=== PATIENT | female | born 1990 | race Caucasian/White ===

== ENCOUNTER 2016-08-16 20:26 | Emergency (ER) | payer OTHER ==
[~2016-08-16] VITALS: Ht 157.5 cm; Wt 132.9 kg
[~2016-08-16 20:26] MED LIST: DOCU100C PO; ESCI1TAB10 PO; LEVO25TA5 PO; OXYC1CAP5 PO; PANT40TA PO
[2016-08-16 20:28] VITALS: TEMP 36.7; Ht 157.5 cm; Wt 132.9 kg
--- NOTE | 2016-08-16 21:41 | DIAGNOSTIC IMAGING REPORT ---
LEFT ELBOW MIN 3 VIEWS ROUTINE CLINICAL HISTORY: Left elbow pain, no trauma COMPARISON: None. DISCUSSION: The bones and joint spaces appear intact. There is no evidence of fracture, dislocation or bony disease. There is no evidence for soft tissue swelling. IMPRESSION: Negative study. Electronically signed by: Xiang Yang M.D. 08/16/2016 9:39 PM Dictated Date/Time: 08/16/2016 9:39 PM
--- NOTE | 2016-08-16 22:14 | DIAGNOSTIC IMAGING REPORT ---
VENOUS DOPPLER LEFT ARM UPPER EXTREMITY VENOUS DOPPLER HISTORY: Pain Left elbow region edema, tenderness. No trauma COMPARISON STUDY: None. FINDINGS: The internal jugular vein is patent. There is normal flow within the subclavian vein. There is normal flow and compressibility within the left axillary, basilic, brachial, radial, ulnar, and visualized cephalic veins. IMPRESSION: No DVT within the upper extremity. Electronically signed by: Xiang Yang M.D. 08/16/2016 10:12 PM Dictated Date/Time: 08/16/2016 10:12 PM
[2016-08-16] MEDS ORDERED: LXP/20 PO (22:22)
[2016-08-16] MEDS ORDERED: BCPILLS PO (22:22)
[2016-08-16] MEDS ORDERED: PANT40TA2 PO (22:22)
--- NOTE | 2016-08-16 22:30 | EMERGENCY ROOM VISIT NOTE ---
History First contact with patient: 20:49 Chief Complaint: ELBOW PAIN/INJURY Stated Complaint: LT ELBOW/ARM SWOLLEN- CAN BARLEY MOVE IT History of Present Illness The patient is a 25 year old female who presents to the Emergency Room via private vehicle with complaints of "left elbow/arm swollen can barely move in". The patient states that approximately one week ago her left elbow began to develop pain. She denies or is unable to identify any injury to the area. She states that the elbow pain is worse with movement. She notes particularly worse with complete flexion of the left elbow. She points to the musculature just inferior to the left elbow joint on the ventral aspect of the proximal forearm as a location of pain. She also felt that the skin overlying the olecranon process was slightly red yesterday. She denies any history of blood clots. She denies any fevers or chills. She notes that the joint has not been warm to the touch, or diffusely red. Review of Systems A complete 6-point Review of Systems was discussed with the patient, with pertinent positives and negatives listed in the History of Present Illness. All remaining Review of Systems questions can be considered negative unless otherwise specified. Past Medical/Surgical History Medical Problems: (1) GERD (gastroesophageal reflux disease) (2) Ovarian cyst Family History Diabetes mellitus Heart disease Social History Smoking Status: Never Smoker Alcohol Use: none Marital Status: in relationship Housing Status: lives with significant other Occupation Status: employed Current/Historical Medications Scheduled Control Pills ( Control Pills), 1 TAB PO DAILY Escitalopram Oxalate (Escitalopram Oxalate), 20 MG PO DAILY Pantoprazole (Pantoprazole Sodium), 40 MG PO DAILY Allergies Coded Allergies: No Known Allergies (Unverified , 03/11/15) Physical Exam Vital Signs Date Time Temp Pulse Resp B/P (MAP) Pulse Ox O2 Delivery O2 Flow Rate FiO2 08/16/16 22:40 73 20 149/90 97 08/16/16 20:28 36.7 88 18 98 Room Air Physical Exam VITAL SIGNS - Vital signs and nursing notes were reviewed. Patient is afebrile , hypertensive, non-tachycardic and is saturating well on room air. GENERAL -25-year-old female appearing her stated age who is in no acute distress. Communicates well with provider and answers questions appropriately. SKIN - Without rashes. Skin overlying the left elbow is unremarkable. There is specifically no erythema, edema or rash. EXTREMITIES - No clubbing or peripheral cyanosis. No pretibial edema present. No tenderness to palpation overlying the left shoulder and left humerus. There is no tenderness to palpation overlying the left elbow joint. With passive range of motion there is reproducible tenderness with complete flexion. No palpable bursitis or inflammation overlying the olecranon process. She is neurovascularly intact in this region. +5/5 strength noted in UE/LE bilaterally. Medical Decision & Procedures ER Provider Diagnostic Interpretation: LEFT ELBOW MIN 3 VIEWS ROUTINE CLINICAL HISTORY: Left elbow pain, no trauma COMPARISON: None. DISCUSSION: The bones and joint spaces appear intact. There is no evidence of fracture, dislocation or bony disease. There is no evidence for soft tissue swelling. IMPRESSION: Negative study. Electronically signed by: Xiang Yang M.D. 08/16/2016 9:39 PM Dictated Date/Time: 08/16/2016 9:39 PM VENOUS DOPPLER LEFT ARM UPPER EXTREMITY VENOUS DOPPLER HISTORY: Pain Left elbow region edema, tenderness. No trauma COMPARISON STUDY: None. FINDINGS: The internal jugular vein is patent. There is normal flow within the subclavian vein. There is normal flow and compressibility within the left axillary, basilic, brachial, radial, ulnar, and visualized cephalic veins. IMPRESSION: No DVT within the upper extremity. Electronically signed by: Xiang Yang M.D. 08/16/2016 10:12 PM Dictated Date/Time: 08/16/2016 10:12 PM Medical Decision Patient was seen and evaluated as above. After obtaining a thorough history and physical examination, radiograph and x-ray were obtained of the affected regions. The patient presents with an atraumatic left elbow pain. I would like to state the elbow pain is rather in the musculature just inferior to left elbow joint. There is no evidence of septic joint on examination. The joint is not red, hot, swollen or tender to palpation. Her vital signs are stable. She subjectively reports no fever. Objectively no fever. Radiograph is negative. Ultrasound is negative. I suspect the patient may be expressing either pain secondary to overuse as she does a lot of typing, or she may strain this region. She also may have a slight tendinitis. Regardless, I'll treat her conservatively with an arm sling, [id number] medication as well as follow-up with the on-call orthopedic doctor regarding today's visit by calling him tomorrow for which she was instructed to do. She does seem happy with this plan of care. She was educated upon worrisome symptoms which to return, as well as symptoms to watch out for in case she would develop a septic joint. She verbalized understanding. She had questions regarding discharge, and was discharged home in good condition. Evaluation treatment this patient the following differential diagnoses entertained: Fracture, Lyme disease, septic joint, bursitis, epicondylitis, tendonitis, muscle strain, among others. Impression Primary Impression: Elbow pain, left Departure Information Dispostion Home / Self-Care Condition GOOD Referrals No Doctor, Assigned (PCP) Patient Instructions My [facility] Additional Instructions You have been treated in the Emergency Department for Elbow Pain. You have received pain medicine in the emergency department which impairs your ability to operate a vehicle. It is illegal for you to drive after receiving these medicines. For pain control, you can use the following [id number] medicines : - Regular strength (325mg/tab) Tylenol (acetaminophen) 2 tabs every 4-6 hours as needed. Do not exceed 12 tablets in a 24 hour period. Avoid taking more than 3 grams (3000 mg) of Tylenol per day. This includes any other sources of acetaminophen you may take on a regular basis. - Regular strength (200 mg/tab) Advil (ibuprofen) 1-2 tabs every 4-6 hours as needed. Do not exceed a dose of 3200 mg per day. If this is a recent injury (<24 hrs), ice can be applied to the area of pain for the first 3 days to help decrease pain and inflammation. You have been provided the number for an Orthopaedic Surgeon. You should call this number as soon as possible to establish a follow-up visit from today's Emergency Department visit. Keep the sling/splint in place until evaluated by Orthopedics. Return to the Emergency Department if your current symptoms worsen despite treatment course outlined above, or if you develop any of the following symptoms : intractable pain despite aforementioned treatment course or new onset of numbness or tingling of the arm. As we discussed if you develop a fever, red, hot, swollen elbow please return immediately. Please return to the emergency department with any new/concerning symptoms.
[2016-08-16 22:40] VITALS: BP 149/90; PULSE 73; O2SAT 97
== END 2016-08-16 22:41 | disposition home or self-care (01) ==
LOC: C.EDB 20:27 → C.EDD 22:41
DX: M25.522 Pain in left elbow (principal); K21.9 Gastro-esophageal reflux disease without esophagitis; N83.209 Unspecified ovarian cyst, unspecified side; Z79.899 Other long term (current) drug therapy; Z83.3 Family history of diabetes mellitus; Z82.49 Family history of ischemic heart disease and other diseases of the circulatory system

== ENCOUNTER 2017-01-24 22:16 | Emergency (ER) | payer OTHER ==
[~2017-01-24] VITALS: Ht 154.9 cm; Wt 137.7 kg
[~2017-01-24 22:16] MED LIST changes: +BCPILLS PO; -DOCU100C PO; -ESCI1TAB10 PO; -LEVO25TA5 PO; +LXP/20 PO; -OXYC1CAP5 PO; -PANT40TA PO; +PANT40TA2 PO
[2017-01-24 22:19] VITALS: TEMP 36.6; Ht 154.9 cm; Wt 137.7 kg
[2017-01-24 22:50] LABS: BASO % 0.1 %; BASO ABS # 0.02 K/uL (0-0.2); COMPLETE YES; EOS % 1.3 %; HEMATOCRIT 36.8 % (37-47); IG% 0.3 %; LYMPH % 25.6 %; LYMPH ABS # 3.88 K/uL (1.2-3.4); MEAN CELL VOLUME 83.8 fL (80-100); MEAN CORPUSCULAR HEMOGLOBIN 27.8 pg (25-34); MEAN CORPUSCULAR HGB CONC 33.2 g/dl (32-36); MEAN PLATELET VOLUME 9.5 fL (7.4-10.4); MONO % 5.1 %; NEUT % 67.6 %; PLATELET COUNT 347 K/uL (130-400); RED BLOOD COUNT 4.39 M/uL (4.2-5.4); WHITE BLOOD COUNT 15.18 K/uL (4.8-10.8)
[2017-01-24 23:11] LABS: BUN/CREATININE RATIO 11.8 (10-20); CREATININE 1.02 mg/dl (0.60-1.20); POTASSIUM 3.7 mmol/L (3.5-5.1)
[2017-01-24 23:12] LABS: PREG INTERNAL NEGATIVE QC NEG CLEAR BACKGROUND; PREG INTERNAL POSITIVE QC POS CONTROL LINE
[2017-01-24 23:36] VITALS: BP 148/78; PULSE 84; O2SAT 100
--- NOTE | 2017-01-24 23:53 | EMERGENCY ROOM VISIT NOTE ---
History First contact with patient: 22:21 Chief Complaint: ABDOMINAL PAIN Stated Complaint: LUMP IN RT SIDE OF STOMACH Nursing Triage Summary: C/o painful lump on right abdomen. States she noticed it today. History of Present Illness The patient is a 26 year old female who presents to the Emergency Room with complaints of possible lump to her right lower quadrant for the past day. Patient thought she felt a lump in her abdomen. This is new for her. Patient denies injury to the area, chest pain, dyspnea, back pain, flank pain, nausea, vomiting, diarrhea, urinary symptoms, vaginal itching or discharge. No bruising. She has had a cyst removed from her ovary in the past. No known hernia. Review of Systems See HPI for pertinent positives & negatives. A total of 10 systems reviewed and were otherwise negative. Past Medical/Surgical History Medical Problems: (1) GERD (gastroesophageal reflux disease) (2) Ovarian cyst Anxiety, cyst removal Family History Diabetes mellitus Heart disease Social History Smoking Status: Never Smoker Alcohol Use: none Marital Status: in relationship Housing Status: lives with significant other Occupation Status: employed Physical Exam Vital Signs Date Time Temp Pulse Resp B/P (MAP) Pulse Ox O2 Delivery O2 Flow Rate FiO2 01/24/17 23:36 84 16 148/78 100 Room Air 01/24/17 22:19 36.6 88 18 155/99 100 Room Air Physical Exam VITALS: Vitals are noted on the nurse's note and reviewed by myself. Vital signs hypertensive GENERAL: Pleasant female, in no acute distress, nondiaphoretic, well-developed well-nourished. SKIN: Capillary reflex less than 2 seconds. HEENT: Normocephalic. PERRLA. EOMI. Nares patent. Mucous membranes moist. Neck is supple without nuchal rigidity. HEART: Regular rate and rhythm without murmurs gallops or rubs. LUNGS: Clear to auscultation bilaterally without wheezes, rales or rhonchi. No retractions or accessory muscle use. ABDOMEN: Positive bowel sounds x 4. Normal tympanic percussion. Soft, protuberant, obese, nontender, without masses or organomegaly. Joseph sign negative. No guarding or rebound tenderness. No CVA tenderness. The patient showed me the area of her concern and I was unable to palpate a mass. Patient is pointing to her pannus I explained to her this most likely is tissue versus a mass. MUSCULOSKELETAL: No gross musculoskeletal defects. No calf tenderness. NEURO: Patient was alert and oriented to person place and time. Normal sensation to light and sharp touch. No focal neurological deficits. Medical Decision & Procedures Laboratory Results 01/24/17 22:40 Red Blood Count 4.39, Mean Corpuscular Volume 83.8, Mean Corpuscular Hemoglobin 27.8, Mean Corpuscular Hemoglobin Concent 33.2, Mean Platelet Volume 9.5, Neutrophils (%) (Auto) 67.6, Lymphocytes (%) (Auto) 25.6, Monocytes (%) (Auto) 5.1, Eosinophils (%) (Auto) 1.3, Basophils (%) (Auto) 0.1, Neutrophils # (Auto) 10.27, Lymphocytes # (Auto) 3.88, Monocytes # (Auto) 0.78, Eosinophils # (Auto) 0.19, Basophils # (Auto) 0.02 01/24/17 22:40 Test 01/24/17 22:40 White Blood Count 15.18 K/uL (4.8-10.8) Red Blood Count 4.39 M/uL (4.2-5.4) Hemoglobin 12.2 g/dL (12.0-16.0) Hematocrit 36.8 % (37-47) Mean Corpuscular Volume 83.8 fL (80-100) Mean Corpuscular Hemoglobin 27.8 pg (25-34) Mean Corpuscular Hemoglobin Concent 33.2 g/dl (32-36) Platelet Count 347 K/uL (130-400) Mean Platelet Volume 9.5 fL (7.4-10.4) Neutrophils (%) (Auto) 67.6 % Lymphocytes (%) (Auto) 25.6 % Monocytes (%) (Auto) 5.1 % Eosinophils (%) (Auto) 1.3 % Basophils (%) (Auto) 0.1 % Neutrophils # (Auto) 10.27 K/uL (1.4-6.5) Lymphocytes # (Auto) 3.88 K/uL (1.2-3.4) Monocytes # (Auto) 0.78 K/uL (0.11-0.59) Eosinophils # (Auto) 0.19 K/uL (0-0.5) Basophils # (Auto) 0.02 K/uL (0-0.2) RDW Standard Deviation 40.9 fL (36.4-46.3) RDW Coefficient of Variation 13.5 % (11.5-14.5) Immature Granulocyte % (Auto) 0.3 % Immature Granulocyte # (Auto) 0.04 K/uL (0.00-0.02) Anion Gap 5.0 mmol/L (3-11) Est Creatinine Clear Calc Drug Dose 111.5 ml/min Estimated GFR () 88.5 Estimated GFR (Non- 76.4 BUN/Creatinine Ratio 11.8 (10-20) Calcium Level 9.0 mg/dl (8.5-10.1) Human Chorionic Gonadotropin, Qual NEG (NEG) ED Course Prior records reviewed and summarized as above. Triage Nursing notes reviewed. Additional history obtained from boyfriend. The patient's history was concerning for possible lump to lower abdomen Differential diagnosis: Etiologies such as lipoma, hernia, cellulitis, abscess, tissue, as well as others were entertained.. Physical examination: As above ER treatment provided: Patient was observed On reassessment the patient felt better. Diagnostics interpreted by me: The labs revealed stable H&H., Leukocytosis. Per chart review, patient chronically has leukocytosis Negative hCG Imaging studies: US SOFT TISSUE: No soft tissue abnormality identified in the region of palpable abnormality. Radiologist: Diana Preston M.D. This appears to be patient's tissue without palpable mass or hernia seen on ultrasound. Patient was advised to follow-up with family care for her ongoing leukocytosis. Patient did not have acute abdomen on exam. She is well- appearing. She is tolerating fluids. She is advised follow-up family care in a few days or here in the ER sooner for abdominal pain, fevers, vomiting, worsening signs or symptoms or as needed. Patient is reassured that the mass that she is concerned about is her own tissue. There was no mass seen on ultrasound or palpated on exam. By the evaluation outlined above emergent etiologies such as lipoma, hernia, as well as others were deemed relatively unlikely. The pt informed about the findings as listed above. All questions were answered and pleased with the treatment. Return instructions were outlined and the patient was discharged in stable condition. Referral: The patient was referred back to primary care physician for follow-up in 2 to 3 days for a recheck of the current condition. Case reviewed with my attending Medical Decision As above Medication Reconcilliation Current Medication List: was personally reviewed by me Blood Pressure Screening Patient's blood pressure: Elevated blood pressure Blood pressure disposition: Elevated BP felt to be situational Impression Primary Impression: Leukocytosis Departure Information Dispostion Home / Self-Care Condition GOOD Referrals No Doctor, Assigned (PCP) Patient Instructions My [facility] Additional Instructions Ibuprofen(Motrin, Advil) may be used for fever or pain. Use 600mg every six hours as needed. Take with food. Avoid using more than 2400mg in a 24 hour period. Do not use 2400mg per day for more than three consecutive days without physician direction. Prolonged inappropriate use can lead to stomach upset or ulcers. (AND/OR) Acetaminophen(Tylenol) may be used for fever or pain. Use 1000mg every six hours as needed. Avoid using more than 4000mg in a 24 hour period. Rest and drink plenty of fluids as tolerated. Continue current medications. Recommend further workup for your chronic leukocytosis with family care. Return to the ER immediately for abdominal pain, vomiting, fevers, chest pains , difficulty breathing, worsening of your condition, or as needed. Follow up with your primary physician in 2-3 days for a recheck of your current condition. Problem Qualifiers Primary Impression: Leukocytosis Leukocytosis type: unspecified Qualified Codes: D72.829 - Elevated white blood cell count, unspecified
--- NOTE | 2017-01-25 06:49 | DIAGNOSTIC IMAGING REPORT ---
LIMITED ABDOMINAL ULTRASOUND CLINICAL HISTORY: Palpable right lower quadrant mass. COMPARISON STUDY: CT scan dated 06/17/2015 FINDINGS: Ultrasonographic evaluation targeted to the area of palpable abnormality was performed. There are no corresponding masses. IMPRESSION: No ultrasonographic masses were visualized to correlate with the reported palpable finding. Clinical follow-up is advocated Electronically signed by: Luis Enrique Weldon M.D. 01/25/2017 6:48 AM Dictated Date/Time: 01/25/2017 6:47 AM
== END 2017-01-25 | disposition home or self-care (01) ==
LOC: C.EDB 22:17 → C.EDA 01-25
DX: D72.829 Elevated white blood cell count, unspecified (principal); R10.9 Unspecified abdominal pain; Z83.3 Family history of diabetes mellitus; Z82.49 Family history of ischemic heart disease and other diseases of the circulatory system

== ENCOUNTER 2017-10-20 18:10 | Emergency (ER) | payer BC, OTHER ==
[~2017-10-20] VITALS: Ht 156.2 cm; Wt 134.3 kg
[2017-10-20 18:13] VITALS: TEMP 36.8; Ht 156.2 cm; Wt 134.3 kg
[2017-10-20] MEDS ORDERED: MECLIZINE HCL 25 MG TAB PO STA (18:27)
[2017-10-20] MEDS ORDERED: SODIUM CHLORIDE 0.9% 1000ML 1,000 ML IV STA (18:27)
[2017-10-20] MEDS ORDERED: ONDANSETRON INJ 2 MG/ML 2 ML VIAL IV STA (18:27)
--- NOTE | 2017-10-20 18:57 | EMERGENCY ROOM VISIT NOTE ---
History Report prepared by Get: Gem Thomas Under the Supervision of: Dr. Christos Oneal D.O. First contact with patient: 18:18 Chief Complaint: DIZZY Stated Complaint: DIZZINESS,PUKING,PASS OUT History of Present Illness The patient is a 27 year old female who presents to the Emergency Room with complaints of intermittent dizziness starting 13.5 hours ago. The patient states that she woke up this morning the use the restroom around 0530. She states that once she got into the bathroom she felt dizzy like the room was spinning and lightheaded. She reports that her ears started ringing and she felt nauseous. She states that while urinating she passed out and fell off the toilet. She states that she woke up and knew where she was, but noticed a large goose egg on her head. Her notes that she was only in the bathroom for 7 -8 minutes in total so doesn't believe she was passed out for too long. The patient states that when she came to she vomited and then felt a little better. She states that she went back to bed until 1100. She states that when she awoke again she had the same symptoms, but did not pass out. The patient states that she has not felt well since then, but notes that her dizziness and nausea has gone away. The patient complains of a headache. The patient denies neck pain, chest pain, abdominal pain, urinary symptoms, weakness, and numbness. The patient notes that her LNMP just ended today. Source of History: patient, spouse/significant other Onset: 13.5 hours ago Quality: other (dizziness) Timing: intermittent Modifying Factors (Relieving): other (vomiting) Associated Symptoms: + LOC, + headache, + nausea, + vomiting, No chest pain , No SOB, No abdominal pain, No urinary symptoms, No weakness, No numbness Note: The patient complains of lightheadedness and her ears ringing. Review of Systems See HPI for pertinent positives & negatives. A total of 10 systems reviewed and were otherwise negative. Past Medical & Surgical Medical Problems: (1) GERD (gastroesophageal reflux disease) (2) HTN (hypertension) (3) Ovarian cyst Family History Diabetes mellitus Heart disease Social History Smoking Status: Never Smoker Alcohol Use: none Marital Status: in relationship Housing Status: lives with significant other Occupation Status: employed Current/Historical Medications Scheduled Control Pills ( Control Pills), 1 TAB PO DAILY Cholecalciferol (Vitamin D), 2,000 UNITS PO DAILY Citalopram (Citalopram Hydrobromide), 1 TAB PO DAILY Lisinopril (Zestril), 1 TAB PO DAILY Meclizine HCl (Meclizine HCl), 25 MG PO TID Pantoprazole (Protonix), 20 MG PO DAILY Allergies Coded Allergies: No Known Allergies (Unverified , 10/20/17) Physical Exam Vital Signs Date Time Temp Pulse Resp B/P (MAP) Pulse Ox O2 Delivery O2 Flow Rate FiO2 10/20/17 20:03 88 20 135/78 98 10/20/17 19:48 88 135/78 98 Room Air 10/20/17 18:13 36.8 112 20 154/92 97 Room Air Physical Exam GENERAL: Morbidly obese, sitting up on edge of bed, no acute distress, nontoxic. EYE EXAM: normal conjunctiva. OROPHARYNX: no exudate, no erythema, lips, buccal mucosa, and tongue normal and mucous membranes are moist NECK: supple, no nuchal rigidity, no adenopathy, non-tender LUNGS: Clear to auscultation. Normal chest wall mechanics HEART: no murmurs, S1 normal and S2 normal ABDOMEN: abdomen soft, non-tender, normo-active bowel sounds, no masses, no rebound or guarding. BACK: Back is symmetrical on inspection and there is no deformity, no midline tenderness, no CVA tenderness. SKIN: no rashes and no bruising UPPER EXTREMITIES: upper extremities are grossly normal. LOWER EXTREMITIES: No pitting edema. NEURO EXAM: Normal sensorium, cranial nerves II-XII intact, normal speech, no weakness of arms, no weakness of legs. No drift. Finger to nose intact. Gross sensation intact. Ambulates without difficulty. Medical Decision & Procedures ER Provider Diagnostic Interpretation: Radiology results as stated below per my review and the radiologist's interpretation: HEAD WITHOUT CONTRAST (CT) CLINICAL HISTORY: 27 years-old Female presenting with GUTIERREZ, dizziness, passing out. TECHNIQUE: Multidetector CT imaging of the head was performed without the use of intravenous contrast. IV contrast: None. A dose lowering technique was used consistent with the principles of ALARA (as low as reasonably achievable). COMPARISON: None. CT DOSE (mGy.cm): The estimated cumulative dose is 537.48 mGy.cm. FINDINGS: Metal Cnc Operator topogram: Unremarkable. Ventricles and sulci normal in size. Brain parenchyma normal in appearance with preserved estrada-white differentiation. No mass effect or midline shift. No hemorrhage or acute territorial infarct. No extra-axial fluid collection. Paranasal sinuses and mastoid air cells clear. Calvarium intact. IMPRESSION: 1. No acute intracranial abnormality. Electronically signed by: Titus Hernandez M.D. 10/20/2017 7:12 PM Dictated Date/Time: 10/20/2017 7:10 PM CHEST ONE VIEW PORTABLE CLINICAL HISTORY: 27 years-old Female presenting with syncope. TECHNIQUE: Portable upright AP view of the chest was obtained. COMPARISON: 06/17/2015. FINDINGS: Cardiomediastinal silhouette normal. No focal opacity. No large effusion or pneumothorax. Osseous structures normal. Upper abdomen normal. IMPRESSION: 1. No acute cardiopulmonary disease. Electronically signed by: Titus Hernandez M.D. 10/20/2017 7:01 PM Dictated Date/Time: 10/20/2017 7:01 PM Laboratory Results 10/20/17 18:45 Red Blood Count 4.53, Mean Corpuscular Volume 83.9, Mean Corpuscular Hemoglobin 27.6, Mean Corpuscular Hemoglobin Concent 32.9, Mean Platelet Volume 9.9, Neutrophils (%) (Auto) 84.7, Lymphocytes (%) (Auto) 11.1, Monocytes (%) (Auto) 3.7, Eosinophils (%) (Auto) 0.1, Basophils (%) (Auto) 0.2, Neutrophils # (Auto) 10.43, Lymphocytes # (Auto) 1.36, Monocytes # (Auto) 0.45, Eosinophils # (Auto) 0.01, Basophils # (Auto) 0.02 10/20/17 18:45 Test 10/20/17 18:45 White Blood Count 12.29 K/uL (4.8-10.8) Red Blood Count 4.53 M/uL (4.2-5.4) Hemoglobin 12.5 g/dL (12.0-16.0) Hematocrit 38.0 % (37-47) Mean Corpuscular Volume 83.9 fL (80-100) Mean Corpuscular Hemoglobin 27.6 pg (25-34) Mean Corpuscular Hemoglobin Concent 32.9 g/dl (32-36) Platelet Count 365 K/uL (130-400) Mean Platelet Volume 9.9 fL (7.4-10.4) Neutrophils (%) (Auto) 84.7 % Lymphocytes (%) (Auto) 11.1 % Monocytes (%) (Auto) 3.7 % Eosinophils (%) (Auto) 0.1 % Basophils (%) (Auto) 0.2 % Neutrophils # (Auto) 10.43 K/uL (1.4-6.5) Lymphocytes # (Auto) 1.36 K/uL (1.2-3.4) Monocytes # (Auto) 0.45 K/uL (0.11-0.59) Eosinophils # (Auto) 0.01 K/uL (0-0.5) Basophils # (Auto) 0.02 K/uL (0-0.2) RDW Standard Deviation 42.0 fL (36.4-46.3) RDW Coefficient of Variation 13.7 % (11.5-14.5) Immature Granulocyte % (Auto) 0.2 % Immature Granulocyte # (Auto) 0.02 K/uL (0.00-0.02) Urine Color YELLOW Urine Appearance CLOUDY (CLEAR) Urine pH 5.5 (4.5-7.5) Urine Specific [place] 1.024 (1.000-1.030) Urine Protein TRACE (NEG) Urine Glucose (UA) NEG (NEG) Urine Ketones NEG (NEG) Urine Occult Blood 3+ (NEG) Urine Nitrite NEG (NEG) Urine Bilirubin NEG (NEG) Urine Urobilinogen NEG (NEG) Urine Leukocyte Esterase SMALL (NEG) Urine WBC (Auto) 10-30 /hpf (0-5) Urine RBC (Auto) >30 /hpf (0-4) Urine Hyaline Casts (Auto) 1-5 /lpf (0-5) Urine Epithelial Cells (Auto) >30 /lpf (0-5) Urine Bacteria (Auto) NEG (NEG) Urine Test NEG (NEG) Anion Gap 10.0 mmol/L (3-11) Est Creatinine Clear Calc Drug Dose 106.5 ml/min Estimated GFR () 84.9 Estimated GFR (Non- 73.2 BUN/Creatinine Ratio 10.2 (10-20) Calcium Level 8.7 mg/dl (8.5-10.1) Total Bilirubin 0.4 mg/dl (0.2-1) Direct Bilirubin 0.1 mg/dl (0-0.2) Aspartate Amino Transf (AST/SGOT) 17 U/L (15-37) Alanine Aminotransferase (ALT/SGPT) 21 U/L (12-78) Alkaline Phosphatase 90 U/L (45-117) Troponin I < 0.015 ng/ml (0-0.045) Total Protein 7.5 gm/dl (6.4-8.2) Albumin 2.9 gm/dl (3.4-5.0) Lipase 110 U/L (73-393) Laboratory results per my review. Medications Administered Medications (Trade) Dose Ordered Sig/Vladimir Route Start Time Stop Time Status Last Admin Dose Admin Sodium Chloride 1,000 ml @ 999 mls/hr Q1H1M STAT IV 10/20/17 18:27 10/20/17 19:27 DC 10/20/17 18:27 999 MLS/HR Ondansetron HCl (Zofran Inj) 4 mg NOW STAT IV 10/20/17 18:27 10/20/17 18:30 DC 10/20/17 18:27 4 MG Meclizine HCl (Antivert Tab) 25 mg NOW STAT PO 10/20/17 18:27 10/20/17 18:30 DC 10/20/17 18:27 25 MG ECG Per My Interpretation Indication: syncope Rate (beats per minute): 108 Rhythm: sinus tachycardia Findings: other (normal axis, no PVCs) ED Course ED COURSE: Vital signs were reviewed and showed tachycardia. The patients medical record was reviewed The above diagnostic studies were performed and reviewed. ED treatments and interventions as stated above. 1820: The patient was evaluated in room A3. A complete history and physical examination was performed. 1826: Ordered Antivert Tab 25 mg PO, Zofran Inj 4 mg IV, NSS 1000 ml @ 999 mls/ hr IV. 1945: Upon reevaluation, the patient is feeling much better. I discussed my findings with the patient and she understands and agrees with the treatment plan. Based on the patients age, coexisting illnesses, exam and lab findings the decision to treat as an outpatient was made. The patient remained stable while under my care. The patient appeared well at the time of discharge. Medical Decision Differential diagnosis includes etiologies such as benign positional vertigo, dehydration, hypovolemia, anemia, tumor, infection, hypoglycemia, electrolyte abnormalities, cardiac sources, intracerebral event, toxicologic, neurologic, as well as others were entertained. Patient is a 27-year-old female who presents the ER for dizziness and syncope. Patient notes that she was dizzy this morning went to the bathroom and became very nauseous and passed out. She has mild headache. She notes that she was also having significant ringing in her ears. Throughout the day she has had some intermittent dizziness but it has resolved at this point. She notes that she just does not feel good at this time. She is completely neurologically intact. Able to ambulate without difficulty. CT head was negative. CBC shows a mild leukocytosis of 12,000 which I favor secondary to the vomiting. BMP along with LFTs, bilirubin lipase was negative. Troponin was negative with a syncopal episode greater than 8 hours ago. UA was contaminated. was negative. Patient was given fluids, Zofran and Antivert. She did feel significant better. Heart rate trended down. No cardiac risk factors with the exception of high blood pressure. She had no chest pain or shortness of breath to suggest PE. She is discharged follow-up with PCP as an outpatient. Medication Reconcilliation Current Medication List: was personally reviewed by me Blood Pressure Screening Patient's blood pressure: Elevated blood pressure Blood pressure disposition: Elevated BP felt to be situational Impression Primary Impression: Dizziness Additional Impression: Vasovagal syncope Scribe Attestation The scribe's documentation has been prepared under my direction and personally reviewed by me in its entirety. I confirm that the note above accurately reflects all work, treatment, procedures, and medical decision making performed by me. Departure Information Dispostion Home / Self-Care Prescriptions Meclizine HCl (Meclizine HCl) 25 Mg Tab 25 MG PO TID for 5 Days Prov: Christos Oneal, DO 10/20/17 Referrals No Doctor, Assigned (PCP) Forms HOME CARE DOCUMENTATION FORM, IMPORTANT VISIT INFORMATION Patient Instructions My [facility] Additional Instructions Please follow up with your primary care doctor with in the next 24 hours. Any worsening of your symptoms, please return to the ED immediately. This includes any fevers greater than 100.4, worsening pain, chest pain, shortness breath, persistent nausea, vomiting, unable to eat or drink, or any other concerning signs or symptoms from your standpoint. Please do not drive for the remainder the day or while symptomatic. Please take Antivert as needed for dizziness. Problem Qualifiers
[2017-10-20 19:02] LABS: BASO % 0.2 %; BASO ABS # 0.02 K/uL (0-0.2); EOS % 0.1 %; EOS ABS # 0.01 K/uL (0-0.5); HEMOGLOBIN 12.5 g/dL (12.0-16.0); IG# 0.02 K/uL (0.00-0.02); LYMPH % 11.1 %; LYMPH ABS # 1.36 K/uL (1.2-3.4); MEAN CELL VOLUME 83.9 fL (80-100); MEAN CORPUSCULAR HEMOGLOBIN 27.6 pg (25-34); MEAN CORPUSCULAR HGB CONC 32.9 g/dl (32-36); MEAN PLATELET VOLUME 9.9 fL (7.4-10.4); MONO % 3.7 %; MONO ABS # 0.45 K/uL (0.11-0.59); NEUT % 84.7 %; NEUT ABS # 10.43 K/uL (1.4-6.5); PLATELET COUNT 365 K/uL (130-400); RED CELL DISTRIBUTION WIDTH CV 13.7 % (11.5-14.5); WHITE BLOOD COUNT 12.29 K/uL (4.8-10.8)
--- NOTE | 2017-10-20 19:03 | DIAGNOSTIC IMAGING REPORT ---
CHEST ONE VIEW PORTABLE CLINICAL HISTORY: 27 years-old Female presenting with syncope. TECHNIQUE: Portable upright AP view of the chest was obtained. COMPARISON: 06/17/2015. FINDINGS: Cardiomediastinal silhouette normal. No focal opacity. No large effusion or pneumothorax. Osseous structures normal. Upper abdomen normal. IMPRESSION: 1. No acute cardiopulmonary disease. Electronically signed by: Titus Hernandez M.D. 10/20/2017 7:01 PM Dictated Date/Time: 10/20/2017 7:01 PM
--- NOTE | 2017-10-20 19:14 | DIAGNOSTIC IMAGING REPORT ---
HEAD WITHOUT CONTRAST (CT) CLINICAL HISTORY: 27 years-old Female presenting with GUTIERREZ, dizziness, passing out. TECHNIQUE: Multidetector CT imaging of the head was performed without the use of intravenous contrast. IV contrast: None. A dose lowering technique was used consistent with the principles of ALARA (as low as reasonably achievable). COMPARISON: None. CT DOSE (mGy.cm): The estimated cumulative dose is 537.48 mGy.cm. FINDINGS: Assembler Tester topogram: Unremarkable. Ventricles and sulci normal in size. Brain parenchyma normal in appearance with preserved estrada-white differentiation. No mass effect or midline shift. No hemorrhage or acute territorial infarct. No extra-axial fluid collection. Paranasal sinuses and mastoid air cells clear. Calvarium intact. IMPRESSION: 1. No acute intracranial abnormality. Electronically signed by: Titus Hernandez M.D. 10/20/2017 7:12 PM Dictated Date/Time: 10/20/2017 7:10 PM
[2017-10-20 19:23] LABS: ALBUMIN 2.9 gm/dl (3.4-5.0); ALKALINE PHOSPHATASE 90 U/L (45-117); ALT/SGPT 21 U/L (12-78); AST/SGOT 17 U/L (15-37); BLOOD UREA NITROGEN 11 mg/dl (7-18); CALCIUM 8.7 mg/dl (8.5-10.1); CARBON DIOXIDE 23 mmol/L (21-32); CREATININE 1.05 mg/dl (0.60-1.20); GLUCOSE 119 mg/dl (70-99); LIPASE 110 U/L (73-393); POTASSIUM 3.6 mmol/L (3.5-5.1); SODIUM 138 mmol/L (136-145); TOTAL PROTEIN 7.5 gm/dl (6.4-8.2)
[2017-10-20] MEDS ORDERED: BCPILLS PO (19:39)
[2017-10-20] MEDS ORDERED: CHOL20009 PO (19:39)
[2017-10-20] MEDS ORDERED: LISI-729 PO (19:39)
[2017-10-20] MEDS ORDERED: CITA40TA4 PO (19:39)
[2017-10-20] MEDS ORDERED: PRT/20 PO (19:39)
[2017-10-20] MEDS ORDERED: ANT25 PO (19:58)
[2017-10-20 20:03] VITALS: BP 135/78; PULSE 88; O2SAT 98
== END 2017-10-20 20:04 | disposition home or self-care (01) ==
LOC: C.EDB 18:11 → C.EDA 20:04
DX: R55 Syncope and collapse (principal); R42 Dizziness and giddiness; K21.9 Gastro-esophageal reflux disease without esophagitis; I10 Essential (primary) hypertension; Z83.3 Family history of diabetes mellitus; Z79.3 Long term (current) use of hormonal contraceptives; Z79.899 Other long term (current) drug therapy